=== PATIENT | female | born 1955 | race American Indian/Alaskan Native ===

== ENCOUNTER 2017-06-26 09:17 | Outpatient (CLI) | payer OTHER ==
--- NOTE | 2017-06-26 15:21 | Mammography Report ---
BILATERAL DIGITAL SCREENING MAMMOGRAM with CAD: 06/26/17 09:17:00 CLINICAL: Routine screening. COMPARISON:06/27/16 FINDINGS: The breasts are almost entirely fatty. No mass, architectural distortion or suspicious calcifications. IMPRESSION: No mammographic evidence of malignancy. BI-RADS CATEGORY: 1 - - Negative RECOMMENDATION: Routine mammographic screening in one year. COMMENT: Patient follow-up letters are generated by our [employer] application.
== END 2017-06-26 09:18 | disposition home or self-care (01) ==
LOC: SPVWC 09:17
PROVIDERS: ATTEND Internal Medicine
DX: Z12.31 Encounter for screening mammogram for malignant neoplasm of breast (principal)
CPT/HCPCS: 77067; G0202

== ENCOUNTER 2018-07-23 10:38 | Outpatient (CLI) | payer OTHER ==
--- NOTE | 2018-07-23 16:41 | Mammography Report ---
BILATERAL DIGITAL SCREENING MAMMOGRAM with CAD: 07/23/18 10:38:00 CLINICAL: Routine screening. COMPARISON:06/26/17 FINDINGS: The breasts are almost entirely fatty. No mass, architectural distortion or suspicious calcifications. IMPRESSION: No mammographic evidence of malignancy. BI-RADS CATEGORY: 1 - - Negative RECOMMENDATION: Routine mammographic screening in one year. COMMENT: Patient follow-up letters are generated by our [employer] application.
== END 2018-07-23 10:39 | disposition home or self-care (01) ==
LOC: SPVWC 10:38
PROVIDERS: ATTEND Family Medicine
DX: Z12.31 Encounter for screening mammogram for malignant neoplasm of breast (principal)
CPT/HCPCS: 77067

== ENCOUNTER 2019-07-29 09:25 | Outpatient (CLI) | payer MEDICARE ==
--- NOTE | 2019-07-30 09:04 | Mammography Report ---
DIGITAL SCREENING MAMMOGRAM WITH CAD, 07/29/2019 INDICATION: Routine screening mammography. TECHNIQUE: Digital bilateral 2D mammography was obtained in the craniocaudal and mediolateral obliq ue projections. This examination was interpreted with the benefit of Computer-Aided Detection analysi s. COMPARISON: 07/23/2018 FINDINGS: Breast Density: There are scattered areas of fibroglandular density. There is no evidence of dominant mass, suspicious calcifications or architectural distortion in eithe r breast. IMPRESSION: No mammographic evidence of malignancy. Follow up recommendation: Routine yearly BI-RADS Category 1: Negative. A "normal" or negative report should not discourage follow up or biopsy of a clinically significant f inding. A written summary of these findings will be mailed to the patient. The patient will be entered into a mammography reporting system which will generate a reminder letter for the patient's next appointmen t at the appropriate interval. The [employer] recommends yearly mammograms starting at age 40 and continuing as l greta as a woman is in good health. Breast MRI is recommended for women with an approximate 20-25% or greater lifetime risk of breast cancer, including women with a strong family history of breast or ova aure cancer or who have been treated for Hodgkin's disease. Signer Name: Steve Rivas MD Signed: 07/30/2019 8:59 AM Workstation Name: [id number]
== END 2019-07-29 09:26 | disposition home or self-care (01) ==
LOC: SPVWC 09:25
PROVIDERS: ATTEND Family Medicine
DX: Z12.31 Encounter for screening mammogram for malignant neoplasm of breast (principal)
CPT/HCPCS: 77067

== ENCOUNTER 2020-08-20 10:19 | Outpatient (CLI) | payer MEDICARE ==
--- NOTE | 2020-08-20 15:28 | Mammography Report ---
DIGITAL SCREENING MAMMOGRAM WITH CAD, 08/20/2020 INDICATION: Routine screening mammography. SCREENING MAMMO TECHNIQUE: Digital bilateral 2D mammography was obtained in the craniocaudal and mediolateral obliq ue projections. This examination was interpreted with the benefit of Computer-Aided Detection analysi s. COMPARISON: 07/29/2019 FINDINGS: Breast Density: There are scattered areas of fibroglandular density. There is no evidence of dominant mass, suspicious calcifications or architectural distortion in the l eft breast. A 7 mm Density is seen in the far posterior upper outer right breast at 10:00, 12 14 cm from the nipple. IMPRESSION: New density on the right Follow up recommendation: Right breast ultrasound BI-RADS Category 0: Incomplete. Needs additional imaging evaluation and/or prior mammograms for christa rison. A "normal" or negative report should not discourage follow up or biopsy of a clinically significant f inding. A written summary of these findings will be mailed to the patient. The patient will be entered into a mammography reporting system which will generate a reminder letter for the patient's next appointmen t at the appropriate interval. The [employer] recommends yearly mammograms starting at age 40 and continuing as l greta as a woman is in good health. Breast MRI is recommended for women with an approximate 20-25% or greater lifetime risk of breast cancer, including women with a strong family history of breast or ova aure cancer or who have been treated for Hodgkin's disease. Signer Name: Stephen Márquez MD Signed: 08/20/2020 3:24 PM Workstation Name: [id number]
== END 2020-08-20 10:20 | disposition home or self-care (01) ==
LOC: SPVWC 10:19
PROVIDERS: ATTEND Nurse Practitioner Acute Care
DX: Z12.31 Encounter for screening mammogram for malignant neoplasm of breast (principal)
CPT/HCPCS: 77067

== ENCOUNTER 2020-09-03 10:52 | Outpatient (CLI) | payer MEDICARE ==
--- NOTE | 2020-09-03 15:44 | Magnetic Resonance Report ---
MRA NECK WITH AND WITHOUT CONTRAST HISTORY: Swelling and mass COMPARISON: None. TECHNIQUE: Routine MRA of the neck is performed utilizing [id number] pre and post-contrast imagin g techniques. 3-D/MIP reformats postprocessed. Percentage stenosis is determined by direct quantitat vinay measurements of distal internal carotid artery diameter compared with normal reference segments o r by criteria similar to NASCET where applicable. CONTRAST: 18 ml of MultiHance FINDINGS: Aortic arch: No significant abnormality. Cervical vertebral arteries: No significant abnormality. Common carotid arteries: No significant abnormality. Carotid bifurcations:Normal Cervical internal carotid arteries: No significant abnormality. Additional findings: None. IMPRESSION: No significant abnormality. Signer Name: Yaima Hollingsworth MD Signed: 09/03/2020 3:40 PM Workstation Name: [id number]
== END 2020-09-03 10:53 | disposition home or self-care (01) ==
LOC: MRI 10:52
PROVIDERS: ATTEND Internal Medicine
DX: R22.2 Localized swelling, mass and lump, trunk (principal); M79.89 Other specified soft tissue disorders
CPT/HCPCS: 70549; A9577

== ENCOUNTER 2020-10-12 10:44 | Outpatient (CLI) | payer MEDICARE ==
--- NOTE | 2020-10-12 11:24 | Ultrasound Report ---
ULTRASOUND BREAST RIGHT LIMITED, 10/12/2020 CLINICAL INFORMATION / INDICATION: Abnormal screening mammogram. TECHNIQUE: Targeted ultrasound evaluation was performed of the area of interest. COMPARISON: Screening mammogram 08/20/2020 FINDINGS: In the 10:00 position, 14 cm the nipple, corresponding to the radiographic abnormality, a 6 mm benign -appearing intramammary node is seen thought to account for the density. IMPRESSION: Benign-appearing lymph node appears to account for the radiographic abnormality Follow up recommendation: Routine yearly BI-RADS Category 2: Benign. A normal or "negative" report should not preclude biopsy or follow-up of a clinically suspicious find ing. Signer Name: Stephen Márquez MD Signed: 10/12/2020 11:19 AM Workstation Name: [id number]
== END 2020-10-12 10:45 | disposition home or self-care (01) ==
LOC: SPVWC 10:44
PROVIDERS: ATTEND Nurse Practitioner Acute Care
DX: R92.8 Other abnormal and inconclusive findings on diagnostic imaging of breast (principal); R59.0 Localized enlarged lymph nodes

== ENCOUNTER 2020-12-16 12:19 | Outpatient (CLI) | payer MEDICARE ==
--- NOTE | 2020-12-16 15:48 | Ultrasound Report ---
ULTRASOUND SOFT TISSUE HEAD AND NECK HISTORY: Soft tissue disorder unspecified. Soft tissue nodule in left neck/supraclavicular region. TECHNIQUE: Grayscale ultrasound with color Doppler imaging. COMPARISON: No relevant comparison. FINDINGS: Targeted ultrasound at the site of the palpable nodule in the left clavicular region demons trates a 0.7 x 1.0 x 0.7 cm nodular density with echogenicity similar to fat. This probably represent s a small lipoma. No aggressive mass or fluid collection. This does not have the appearance of a lymp h node. Signer Name: Leo Singh Jr, MD Signed: 12/16/2020 3:43 PM Workstation Name: [id number]
== END 2020-12-16 12:20 | disposition home or self-care (01) ==
LOC: US 12:19
PROVIDERS: ATTEND Surgery
DX: M79.9 Soft tissue disorder, unspecified (principal)
CPT/HCPCS: 76536

== ENCOUNTER 2021-03-15 06:50 | Day surgery (SDC) | payer MEDICARE ==
[~2021-03-15 06:50] MED LIST: ACETAMINOPHEN 500 MG TAB PO SCH; LACTATED RINGERS 1,000 ML IV SCH; MIDAZOLAM 2 MG/2 ML INJ IV NR
[2021-03-15] MEDS ORDERED: ONDANSETRON 4 MG/2 ML INJ IV PRN (07:35)
[2021-03-15] MEDS ORDERED: HYDROcodone/ACETAMINOPHEN 5-325 MG TAB PO PRN (07:35)
--- NOTE | 2021-03-15 07:35 | Anesthesia Consultation ---
Anesthesia Consult and Med Hx Date of service: 03/15/21 - Airway Anesthetic Teeth Evaluation: Good ROM Head & Neck: Adequate Mental/Hyoid Distance: Adequate Mallampati Class: Class II Intubation Access Assessment: Probably Good - Pre-Operative Health Status ASA Pre-Surgery Classification: ASA2 Proposed Anesthetic Plan: MAC - Pulmonary Hx Smoking: No Hx Respiratory Symptoms: No - Cardiovascular System Hx Hypertension: Yes (took antihypertensives this morning, PCP currently working to optimize BP) Hx Heart Attack/AMI: No - Central Nervous System CVA: No - Endocrine Hx Renal Disease: No Hx Liver Disease: No Hx Insulin Dependent Diabetes: No Hx Non-Insulin Dependent Diabetes: No Hx Thyroid Disease: No - Other Systems Hx Obesity: Yes (BMI 34) - Additional Comments Anesthesia Medical History Comments: No hx anesthetic complications.
--- NOTE | 2021-03-15 07:35 | Anesthesia Day of Surgery ---
Anesthesia Day of Surgery - Day of Surgery Patient Examined: Yes Patient H&P Reviewed: Yes Patient is NPO: Yes
[2021-03-15] MEDS ORDERED: ceFAZolin/STERILE WATER 2 GM/20 ML SYRINGE IV NR (08:00)
[2021-03-15] MEDS ORDERED: ALBUTEROL 8.5 GM MDI INHALATION IH ONE (08:00)
[2021-03-15] MEDS ORDERED: propofoL 200 MG/20 ML VIAL IV ONE ×3 (08:01→08:04)
[2021-03-15] MEDS ORDERED: fentaNYL 100 MCG/2 ML INJ ONE (08:16)
[2021-03-15] MEDS ORDERED: BUPIVACAINE/PF (0.25%) 2.5 MG/ML 30 ML VIAL INFILTRATI ONE ×2 (09:02→09:40)
[2021-03-15] MEDS ORDERED: LIDOCAINE (1%) 10 MG/1 ML VIAL 20 ML MDV ONE (09:02)
[2021-03-15] MEDS ORDERED: LIDOCAINE (1%) 10 MG/1 ML VIAL 20 ML MDV INFILTRATI ONE (09:41)
[2021-03-15] MEDS ORDERED: SODIUM CHLORIDE 0.9% IRR 1,500 ML BOTTLE IR ONE (09:41)
--- NOTE | 2021-03-15 10:03 | Short Stay Summary ---
Short Stay Documentation Date of service: 03/15/21 - History Principal diagnosis: soft tissue mass left anterior clavicle H&P: obtained from office - Allergies and Medications Current Medications: Allergies No Known Allergies Allergy (Unverified 09/03/20 10:52) Home Medications Medication Instructions Recorded Confirmed Last Taken Type Calcium Citrate/Vitamin D3 50,000 units PO 1XW 12/24/20 03/15/21 02/22/21 09:00 History Olmesartan Medoxomil [Benicar] 40 mg PO DAILY 12/24/20 03/15/21 03/15/21 05:00 History Omeprazole 40 mg PO DAILY 12/24/20 12/24/20 03/14/21 09:00 History Pravastatin Sodium 20 mg PO DAILY 12/24/20 03/15/21 03/14/21 09:00 History Active Medications Acetaminophen (Acetaminophen 500 Mg Tab) 1,000 mg PO PREOP GENARO Stop: 03/15/21 20:00 Last Admin: 03/15/21 07:50 Dose: 1,000 mg Documented by: Hydrocodone Bitart/Acetaminophen (Hydrocodone/Acetaminophen 5-325 Mg Tab) 2 each PO ONCE PRN PRN Reason: Pain, Moderate (4-6) Stop: 03/15/21 18:00 Cefazolin Sodium (Cefazolin/Sterile Water 2 Gm/20 Ml Syringe) 2 gm IV PREOP NR Stop: 03/15/21 18:00 Lactated Ringer's (Lactated Ringers) 1,000 mls @ 100 mls/hr IV DIRECT GENARO Stop: 03/15/21 23:59 Last Admin: 03/15/21 07:55 Dose: 100 mls/hr Documented by: Midazolam HCl (Midazolam 2 Mg/2 Ml Inj) 2 mg IV PREOP NR Stop: 03/15/21 20:00 Last Admin: 03/15/21 08:05 Dose: 2 mg Documented by: Ondansetron HCl (Ondansetron 4 Mg/2 Ml Inj) 4 mg IV ONCE PRN PRN Reason: Nausea And Vomiting Stop: 03/15/21 18:00 - Brief post op/procedure progress note Date of procedure: 03/15/21 Pre-op diagnosis: soft tissue mass anterior left clavicle Post-op diagnosis: same Procedure: excision soft tissue mass anterior left clavicle Anesthesia: MAC, local Findings: 2 cm lobulated fatty mass consistent with lipoma Surgeon: NAIDA CAMPA Estimated blood loss: minimal Pathology: list (soft tissue mass left clavicle) Specimen disposition: to lab Condition: stable - Hospital course Hospital course: Pt observed in PACU and discharged to home in stable condition when criteria met - Disposition Condition at discharge: Good Disposition: DC- TO HOME OR SELFCARE Short Stay Discharge Plan Diet: regular Wound: open to air, per your surgeon's advice Additional Instructions: SEE PRINTED DISCHARGE INSTRUCTIONS Follow up with: EDWINA BARRERA JR, LITIGATION SERVICES MANAGER [Primary Care Provider] - 7 Days NAIDA CAMPA DO [Staff Physician] - 14 Days Prescriptions: HYDROcodone/APAP 5-325 [[place]oll[place] 5/325] 1 each PO Q12H PRN #5 tablet PRN Reason: Pain , Severe (7-10)
--- NOTE | 2021-03-15 14:11 | Post Anesthesia Evaluation ---
- Post Anesthesia Evaluation Patient Participated: Yes Airway Patent: Yes Stable Respiratory Function: Yes Nausea/Vomiting: No Temp > 96.8F: Yes Pain Manageable: Yes Adequeate Hydration: Yes Anesthesia Complications: No
--- NOTE | 2021-03-15 15:11 | Operative Report ---
Operative Report Operative Report: Date of procedure: 03/15/21 Pre-op diagnosis: soft tissue mass anterior left clavicle Post-op diagnosis: same Procedure: excision soft tissue mass anterior left clavicle Anesthesia: MAC, local Findings: 2 cm lobulated fatty mass consistent with lipoma Surgeon: NAIDA CAMPA Estimated blood loss: minimal Pathology: list (soft tissue mass left clavicle) Specimen disposition: to lab Condition: stable Hospital course: Pt observed in PACU and discharged to home in stable condition when criteria met HPI and indication: Patient is a 65-year-old female who presented to the surgery clinic for evaluation of the left clavicle mass. Patient elected for excision. An outpatient MRI, x-ray and ultrasound were reviewed. All risks, benefits, alternatives to surgery were discussed and questions answered. Consent was obtained for excision of left clavicle soft tissue mass. Procedure in detail: Patient was identified in the preoperative area and operative site palpated, marked. She was taken back to the operating room, and placed on the operating room table in supine position. After anesthesia was induced, the left upper chest was prepped and draped in usual sterile fashion and a timeout was performed. Local anesthetic was infiltrated into the skin and subcutaneous tissue at the intended incision site. A a transverse incision was made in the skin over the mass using a 15 blade. Dissection was carried down through the skin and subcutaneous tissue using electrocautery. The mass was identified and appeared fatty. Using a combination of blunt dissection with a hemostat and electrocautery, the mass was carefully dissected from the surrounding tissue circumferentially. The mass measured 2 cm and was consistent with a lipoma. This was then passed off the table as a specimen. The wound was then irrigated and hemostasis achieved with electrocautery. Once hemostasis was ensured, the deep layer was closed using interrupted 3-0 Vicryl sutures. The skin was approximated with 4-0 Monocryl interrupted subcuticular stitches and skin glue. At the end of the case, all sponge, instrument, sharp counts were correct 2. The patient was awoken from anesthesia and taken to PACU in stable condition.
[2021-03-15 21:53] VITALS: BP 118/67
== END 2021-03-15 06:51 | disposition home or self-care (01) ==
LOC: OR 06:50
PROVIDERS: ATTEND Surgery
DX: M79.89 Other specified soft tissue disorders (principal); D17.22 Benign lipomatous neoplasm of skin and subcutaneous tissue of left arm; E78.00 Pure hypercholesterolemia, unspecified; I10 Essential (primary) hypertension; K21.9 Gastro-esophageal reflux disease without esophagitis; Z79.899 Other long term (current) drug therapy; Z98.890 Other specified postprocedural states
CPT/HCPCS: 23075; 88307; J0690; J2250; J2704; J3010; J7120; 88304

== ENCOUNTER 2021-08-22 11:21 | Outpatient (CLI) | payer MEDICARE ==
--- NOTE | 2021-08-23 17:29 | Mammography Report ---
DIGITAL SCREENING MAMMOGRAM WITH CAD, 08/22/2021 CLINICAL INFORMATION / INDICATION: Routine screening mammography. SCREENING MAMMO Z12.31 TECHNIQUE: Digital bilateral 2D mammography was obtained in the craniocaudal and mediolateral obliqu e projections. This examination was interpreted with the benefit of Computer-Aided Detection analysis . COMPARISON: 08/20/2020 FINDINGS: Breast Density: There are scattered areas of fibroglandular density. No dominant mass, suspicious calcifications, or architectural distortion in the left breast. Nodule in the upper outer quadrant of the right breast increased in size compared to the prior study. This measures approximately 7 mm on the current exam. The margins appear irregular and it is increas ed in density. IMPRESSION: Nodule in the upper outer quadrant of the right breast is increased in size. Further eval uation is required. Follow up recommendation: Ultrasound BI-RADS Category 0: Incomplete. Needs additional imaging evaluation and/or prior mammograms for chritsa rison. A "normal" or negative report should not discourage follow up or biopsy of a clinically significant f inding. A written summary of these findings will be mailed to the patient. The patient will be entered into a mammography reporting system which will generate a reminder letter for the patient's next appointmen t at the appropriate interval. The [employer] recommends yearly mammograms starting at age 40 and continuing as l greta as a woman is in good health. Breast MRI is recommended for women with an approximate 20-25% or greater lifetime risk of breast cancer, including women with a strong family history of breast or ova aure cancer or who have been treated for Hodgkin's disease. Signer Name: Hipolito Goodwin MD Signed: 08/23/2021 5:25 PM Workstation Name: [id number]
== END 2021-08-22 11:22 | disposition home or self-care (01) ==
LOC: SPVWC 11:21
PROVIDERS: ATTEND Internal Medicine
DX: Z12.31 Encounter for screening mammogram for malignant neoplasm of breast (principal)
CPT/HCPCS: 77067

== ENCOUNTER 2021-10-12 09:15 | Outpatient (CLI) | payer MEDICARE ==
--- NOTE | 2021-10-12 11:00 | Ultrasound Report ---
ULTRASOUND BREAST RIGHT LIMITED, 10/12/2021 CLINICAL INFORMATION / INDICATION: ABNORMAL MAMMOGRAM. Patient presents as a callback from screening mammogram for further evaluation of a nodular density in the right breast. TECHNIQUE: Targeted ultrasound evaluation was performed of the area of interest. COMPARISON: Prior mammogram 08/22/2021 FINDINGS: Corresponding with the nodular density seen on recent mammogram, there is an irregular hypoechoic mas s in the right breast 10:00 position located 8 cm from the nipple measuring up to 9 x 7 x 8 mm. Targe darcie ultrasound of the right axilla is unremarkable, with no suspicious lymphadenopathy identified. IMPRESSION: 1. An irregular hypoechoic mass corresponds with the mammographic finding and is highly suggestive of malignancy, ultrasound-guided biopsy is recommended. Follow up recommendation: Biopsy BI-RADS Category 5: HIGHLY SUGGESTIVE OF MALIGNANCY. A normal or "negative" report should not preclude biopsy or follow-up of a clinically suspicious find ing. Signer Name: Regina Caballero MD Signed: 10/12/2021 10:55 AM Workstation Name: [id number]
== END 2021-10-12 09:16 | disposition home or self-care (01) ==
LOC: MAMMO 09:15
PROVIDERS: ATTEND Internal Medicine
DX: N63.11 Unspecified lump in the right breast, upper outer quadrant (principal)